=== PATIENT | male | born 1995 | race Caucasian/White ===

== ENCOUNTER 2018-08-04 09:46 | Emergency (ER) | payer SELFPAY ==
[2018-08-04 09:47] VITALS: BP 152/100; PULSE 125; RESP 17; TEMP 37.4; O2SAT 98; BMI 29.6
--- NOTE | 2018-08-04 10:18 | ED.VIS.GEN ---
History of Present Illness Chief Complaint: Back Informant: Patient Onset: Days - Onset Thursday Context: Sudden Onset - States was helping a friend move tires. Friend dropped a tire which pulled him forward and jerked his back Timing: Continuous Quality: Pain left greater than right Current Severity: Mild Maximum Severity: Moderate Worsened by: Standing up straight or movement Relieved by: Nothing Associated Symptoms: No neurovascular symptoms Narrative: Patient is a 23-year-old male with no sniffing a past medical history presents with acute onset of back pain secondary to trauma. There is no history of direct trauma. He was helping a friend move tires. The friend dropped a tire accidentally. He caught it and he jerked forward. He states the pain started immediately. He denies bowel or bladder dysfunction. He denies saddle paresthesia or anesthesia. He denies foot drop. He denies buckling of his knee going up or down steps. He denies radicular pain. He denies numbness of his legs. He states he prefers to sit versus standing. He has no other complaints. He states he was sent home from work. Prior similar symptoms: No Recent Illness/Hospitalization: No - Past Medical History (1) No significant past medical history Status: Acute Past Medical History - Allergies and Home Meds Allergies/Adverse Reactions: Allergies No Known Allergies Allergy (Verified 08/04/18 09:47) Primary Care Physician: Care Physician,No Primary [Primary Care Provider] - Prior records reviewed: No Past Medical History: None Surgical History: no surgical history Lives: Alone Smoking Status: Current every day smoker Alcohol: Rare Drugs: None Review of Systems General: Denies: Chills, Fever, Malaise, Subjective, Sweats, Weight loss Eyes: Denies: Visual changes - bilaterally, Blurred Vision - bilaterally ENT: Denies: Rhinorrhea, Sore throat Cardiovascular: Denies: Chest pain, Palpitations Respiratory: Denies: Dyspnea, Cough, Sputum, Dyspnea on exertion Gastrointestinal: Denies: Abdominal pain, Nausea, Vomiting, Diarrhea Genitourinary: Reports: - - And see HPI. Denies: Frequency Musculoskeletal: Reports: Back pain. Denies: Myalgias, Arthralgias, Neck pain, Swelling, Extremity Pain, -, - Skin: Denies: Rash, Wounds Neurological: Denies: Headache, Weakness, Parasthesia, Numbness, -, - Allergy: Denies: Uticaria, Swelling of the mouth Physical Exam Vital Signs/Narrative: Vital Signs Temp Pulse Resp BP Pulse Ox 08/04/18 09:47 99.4 F H 125 H 17 152/100 H 98 Inital Vital Signs reviewed: Yes General: Well nourished, Well developed, No Acute Distress, - - Patient is leaning to the left bed and resist me straightening him out. Head: Normocephalic, Atraumatic Eyes: Perrl, EOMI. Negative for: Pale conjunctiva, Scleral icterus, - ENT: Moist mucous membranes, No rhinorrhea Neck: Supple, Nontender, No lymphadenopathy, No JVD Cardiovascular: Regular rate, Regular rhythm, No murmurs, Normal S1, Normal S2 Respiratory: No distress, CTA bilaterally, Chest nontender Abdomen: Soft, Nontender, Nondistended, Normal bowel sounds, No masses Rectal: - - Normal perianal sensation Back: Negative for: Nontender, Normal Inspection - Patient leans to the left, CVA tenderness, Spinal tenderness Extremities: Nontender, No edema Skin: Normal color, No rash, No Trauma. Negative for: Cyanosis, Diaphoresis, Jaundice Neurological: Alert, Oriented x3, Cranial nerves II-XII grossly intact, Normal Strength, Normal Sensation, Normal DTR - Patella and ankle reflex are 2+. There is no clonus or Babinski sign., Normal Gait - Gait was observed. He does not have a foot drop. Able to walk on heels and toes. He is able to perform a 1 legged squat on the right and left side. EHL is intact., - - Straight leg test is negative bilaterally. He complained of pain with 5 to 10 degrees of elevation on the right. He reported more pain when I lowered the right lower externally. He also complained the pain at 10 to 15 degrees on the left and reported increased pain when the extremity was lowered. Psychological: Normal affect, Normal Mood Diagnostic/Tx/Re-eval - Medical Decision Making Patient's history and physical exam is consistent with low back strain. Based on history and physical exam there is no evidence of herniated disc causing his symptoms. Patient was instructed to take 4 ibuprofen tablets every 8 hours and ice. ED Disposition - Plan for ED Patient: Disposition: Home or Assisted Living Diagnosis: Bilateral low back pain without sciatica Instructions: ED Sprain Strain Lumbar Referrals: Care Physician,No Primary [Primary Care Provider] - Additional Instructions: Recommend taking 4 Advil tablets every 8 hours for the next 3 to 5 days. Recommend ice 20 to 30 minutes per application 6-8 times a day. Recommend avoiding activities that cause you discomfort today and reason for work excuse. Recommend following up with your primary care physician if not better in 3 to 5 days. The name of your physician is on your insurance card.
== END 2018-08-04 10:36 | disposition home or self-care (01) ==
LOC: ED 10:33
PROVIDERS: Emergency Provider Emergency Medicine
DX: M54.5 Low back pain (principal); X58.XXXA Exposure to other specified factors, initial encounter; Y93.9 Activity, unspecified; Y92.9 Unspecified place or not applicable; F17.200 Nicotine dependence, unspecified, uncomplicated
CPT/HCPCS: 99282